=== PATIENT | male | born 1985 | race Caucasian/White ===

== ENCOUNTER 2017-02-10 01:27 | Emergency (ER) | payer OTHER ==
[~2017-02-10] VITALS: Ht 193 cm; Wt 102.5 kg
[2017-02-10 01:35] VITALS: BP 136/82
[2017-02-10] MEDS ORDERED: PENICILLIN V POTASSIUM 500 MG TABLET PO ONE (02:00)
[2017-02-10] MEDS ORDERED: IBUPROFEN 800 MG TABLET PO ONE (02:00)
== END 2017-02-10 02:04 | disposition home or self-care (01) ==
LOC: EMS 01:29
DX: J02.0 Streptococcal pharyngitis (principal); F17.210 Nicotine dependence, cigarettes, uncomplicated
CPT/HCPCS: 99283; 99406